=== PATIENT | male | born 1985 | race Caucasian/White ===

== ENCOUNTER 2016-08-01 19:42 | Emergency (ER) | payer OTHER ==
[2016-08-01 20:24] VITALS: BP 140/88
[2016-08-01] MEDS ORDERED: Ketorolac INJ* 60 MG/2 ML VIAL IM ONE (22:06)
--- NOTE | 2016-08-01 22:10 | UC ---
Skin Complaint HPI - HPI Summary HPI Summary: 30 male presents with complaints of a lump on his left flank that notice today while in the shower. Patient states he has never had anything like this before and denies pain on palpation. Denies redness, discharge, and fever/chills. Admits to having similar ones in the past that resolved on their own. 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 Denies any known trauma or injury. Denies numbness/tingling, weakness, saddle anesthesia and urinary bladder or bowel incontinence. No known PMHx. - History of Current Complaint Chief Complaint: UCSkin Stated Complaint: LUMP ON BACK Hx Obtained From: Patient Onset/Duration: Sudden Onset Skin Exposure Onset/Duration: Hours Ago Timing: Constant Onset Severity: Mild Current Severity: Mild Pain Intensity: 5 - due to back pain Pain Scale Used: 0-10 Numeric Location: Other - left flank Character: Swelling, Raised Aggravating: Nothing Alleviating: Nothing Associated Signs & Symptoms: Positive: Negative - Allergy/Home Medications Allergies/Adverse Reactions: Allergies Allergy/AdvReac Type Severity Reaction Status Date / Time No Known Allergies Allergy Verified 08/01/16 20:16 Home Medications: Home Medications Ibuprofen [Advil] 200 mg PO Q6H PRN 08/01/16 [History Confirmed 08/01/16] Review of Systems Constitutional: Negative Skin: Other - lump on left flank Respiratory: Negative Cardiovascular: Negative Gastrointestinal: Negative Musculoskeletal: Arthralgia, Myalgia - back diffuse All Other Systems Reviewed And Are Negative: Yes PMH/Surg Hx/FS Hx/Imm Hx - Additional Past Medical History Additional PMH: denies htn, diabetes and asthma - Surgical History Surgical History: Yes Surgery Procedure, Year, and Place: knee surgery - Family History Known Family History: Positive: None - Social History Alcohol Use: Daily Alcohol Amount: 2 beers a day Substance Use Type: None Smoking Status (MU): Former Smoker - Immunization History Vaccination Up to Date: Yes Physical Exam Triage Information Reviewed: Yes Appearance: Well-Appearing, Pain Distress - mild when moving Vital Signs: Initial Vital Signs Temp 97.6 F 08/01/16 20:17 Pulse 92 08/01/16 20:17 Resp 16 08/01/16 20:17 BP 140/88 08/01/16 20:17 Pulse Ox 100 08/01/16 20:17 BP somewhat elevated however is in pain. recommended follow up with pcp within 2 weeks to re check Vital Signs Reviewed: Yes Eyes: Positive: Conjunctiva Clear ENT: Positive: Normal ENT inspection, Hearing grossly normal Neck: Positive: Supple, Nontender, No Lymphadenopathy Respiratory: Positive: Chest non-tender, Lungs clear, Normal breath sounds, No respiratory distress, No accessory muscle use. Negative: Rhonchi, Stridor, Wheezing Cardiovascular: Positive: RRR, No Murmur, Pulses Normal - 2+ pedal and radial, Brisk Capillary Refill - < 2 seconds Abdomen Description: Positive: Nontender, Soft. Negative: Bruit, CVA Tenderness (R), CVA Tenderness (L), Distended, Guarding, Peritoneal Signs Bowel Sounds: Positive: Present Musculoskeletal: Positive: Strength Intact, ROM Intact - causes some discomfort when twisting and flexing at lower back and left sided rotation, No Edema, Other : - no crepitus step off or bony tenderness, no obvious deformity Neurological: Positive: Alert - sensation intact, normal neuro, reflexes intact , gait kathy, able to bear weight, sensory/motor intact, Skin: Positive: Other - somewhat fluctuant to firm lump felt at left flank, mid- back, minimal tenderness on palpation. no erythema, discharge or open wounds, no sign of infection. no rash. no ecchymosis. lump is skin colored. appears to be lipoma Course/Dx - Course Course Of Treatment: discussed that back pain is probably due to hard labor and strained. given toradol for pain and inflammation. takes ibuprofen and naproxen daily with minimal relief. no kidney issues. educated on lipomas and aware of worsening signs and symptoms to watch out for. does not appear to be any urgent or emergent etiology at this time. told to follow up with PCP for further imaging and evaluation. - Differential Diagnoses - Skin Complaint Differential Diagnoses: Allergic Reaction, Cellulitis, Urticaria, Other - lipoma - Diagnoses Provider Diagnoses: lipoma, skin lump, back pain/strain Discharge - Discharge Plan Condition: Stable Disposition: HOME Patient Education Materials: Lipoma (ED), Soft Tissue Mass (ED) Referrals: No Primary Care Phys,NOPCP [Primary Care Provider] - [facility] [place] [facility] REFERRAL [Outside] Additional Instructions: Take ibprofen/naproxen for pain and inflammation for back pain. Follow up with pcp for further imaging and evaluation of possible lipoma. If symptoms worsen or new symptoms develop please return or seek medical attention promptly.
== END 2016-08-01 22:18 | disposition home or self-care (01) ==
LOC: UCEAST 19:42
DX: D17.1 Benign lipomatous neoplasm of skin and subcutaneous tissue of trunk (principal); M54.9 Dorsalgia, unspecified; S39.012A Strain of muscle, fascia and tendon of lower back, initial encounter; X50.9XXA Other and unspecified overexertion or strenuous movements or postures, initial encounter; Z87.891 Personal history of nicotine dependence
CPT/HCPCS: 96372; 99211; G0463; J1885

== ENCOUNTER 2016-08-30 07:22 | Emergency (ER) | payer OTHER ==
[2016-08-30 07:43] VITALS: BP 129/85
--- NOTE | 2016-08-30 12:12 | UC ---
Mary Peacock Auryana, scribed for MarcelleElaine Hayde DO on 08/30/16 at 0823 . General HPI - HPI Summary HPI Summary: 30 year old male presents with worsening diffuse myalgia starting 4 days ago. Patient reports that the pain started as right shoulder pain that radiates down the arm to the elbow and the fingers. The pain has now spread to the lower extremities, the back, and up to the neck region. Patient reports that the pain fluctuates from a 6/10 - 8/10 and is characterized as dull to stabbing pain. He reports normal appetite. He denies feeling sick or any fever, chills, nausea, left foot pain, headache, parasthesias, or any rashes. He denies any dry eyes or dry mouth. He denies strenuous activity. He reports decreased sleep due to pain- states inability to get comfortable. Patient states that he has been gaining weight recently and that his has noted back acne - unusual for patient. Pain is worse with touch and upon moving after sitting for prolonged periods of time. 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 He notes that 2 weeks ago he was cleaning out his property - states found multiple tick nests but denies any tick bites- states that he checks frequently. PMHx is significant for general anxiety, knee surgery and back pain secondary to deteriorated disc and hip pain. FHx is significant for Sjogrens syndrome and substance abuse- Patient is adopted. SHx is significant for tobacco use (chew Saturday)and alcohol - daily, 2 drinks after work. 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 - History of Current Complaint Chief Complaint: UCGeneralIllness Stated Complaint: BODY WEAK AND HURTS Time Seen by Provider: 08/30/16 07:41 Hx Obtained From: Patient Onset/Duration: Gradual Onset, Lasting Days - 4, Still Present, Worse Since - progressively Timing: Constant Onset Severity: Moderate Current Severity: Moderate Pain Intensity: 7 - 6/10 to 8/10 Pain Location at: diffuse myalgia Character: dull to stabbing character Aggravating: movement after prolonged rest or touch Alleviating: ibuprofen - mild improvement Associated Signs & Symptoms: Positive: Back Pain, Other - diffuse myalgia. Negative: Abdominal Pain, Cough, Chest Pain, Dizziness, Diarrhea, Dysuria, Decreased Oral Intake, Fever, Headache, Nausea, Syncope, SOB, Vomiting, Wheezing - Allergy/Home Medications Allergies/Adverse Reactions: Allergies Allergy/AdvReac Type Severity Reaction Status Date / Time No Known Allergies Allergy Verified 08/01/16 20:16 Home Medications: Home Medications Aspirin [Paul Aspirin 325 MG] 08/30/16 [History] PMH/Surg Hx/FS Hx/Imm Hx Previously Healthy: Yes - Surgical History Surgical History: Yes Surgery Procedure, Year, and Place: knee surgery-right knee - Family History Known Family History: Positive: Other - substance abuse and sjogrens Negative: Cardiac Disease, Hypertension, Diabetes - Social History Occupation: Employed Full-time Lives: With Family Alcohol Use: Daily Alcohol Amount: several beers daily/whiskey Substance Use Type: Marijuana Smoking Status (MU): Light Every Day Tobacco Smoker Type: Smokeless Tobacco Amount Used/How Often: last used 4 days ago - previously 8 months before that Cessation Counseling: Patient Advised to Stop - Immunization History Vaccination Up to Date: Yes Review of Systems Constitutional: Fatigue - due to inability to get comfortable when sleeping, Other - increased weight gain recently Skin: Other - increased back acne Eyes: Negative ENT: Negative Respiratory: Negative Cardiovascular: Negative Gastrointestinal: Negative Genitourinary: Negative Motor: Negative Neurovascular: Negative Musculoskeletal: Myalgia - diffuse Neurological: Negative Psychological: Negative All Other Systems Reviewed And Are Negative: Yes Physical Exam Triage Information Reviewed: Yes Appearance: Well-Appearing, Well-Nourished, Pain Distress - mild Vital Signs: Initial Vital Signs Temp 98.2 F 08/30/16 07:35 Pulse 85 08/30/16 07:35 Resp 16 08/30/16 07:35 BP 129/85 08/30/16 07:35 Pulse Ox 99 08/30/16 07:35 Vital Signs Reviewed: Yes Eyes: Positive: Conjunctiva Clear. Negative: Discharge ENT: Positive: Hearing grossly normal. Negative: Muffled/hoarse voice Neck exam: Normal Neck: Positive: Supple Respiratory: Positive: Lungs clear, Normal breath sounds, No respiratory distress, No accessory muscle use Cardiovascular: Positive: RRR, No Murmur Abdomen Description: Positive: Nontender, Soft. Negative: Distended, Guarding Bowel Sounds: Positive: Present Musculoskeletal Exam: Normal Musculoskeletal: Positive: Strength Intact, ROM Intact, No Edema, Other: - SPURLINGS NEG BL. DIFFUSE TENDERNESS - ARMS, SHINS, RT FOOT, NECK, SPA MANAGER TO LIGHT PALPATION. Neurological: Positive: Alert, Muscle Tone Normal, Other: - Strength, sensation , and reflexes intact bilaterally. Psychological Exam: Normal Psychological: Positive: Age Appropriate Behavior Skin Exam: Normal, Other - No redness, swelling, or bruising are noted. Skin: Positive: Other - warm, dry, normal color Course/Dx - Course Course Of Treatment: the patient has been encouraged to quit smoking. high blood pressure noted. - Differential Dx - Multi-Symptom Provider Diagnoses: lyme disease Discharge - Discharge Plan Condition: Stable Disposition: HOME Prescriptions: Acetaminop/Codeine 30 MG TAB* [Tylenol/Codeine 30 MG TAB*] 1 - 2 tab PO BEDTIME PRN #10 tab MDD 2 PRN Reason: Pain DOXYcycline CAP(*) [DOXYcycline 100MG CAP(*)] 100 mg PO BID #42 cap Patient Education Materials: Lyme Disease (ED) Referrals: [facility] [place] [facility] [Outside] (Follow up within 1 week.) Additional Instructions: WE ARE DOING SOME LAB WORK. YOU WILL BE CALLED WITH ABNORMAL RESULTS. The documentation as recorded by the Mary hoyos Auryana accurately reflects the service I personally performed and the decisions made by me, Elaine Ibanez DO.
[2016-08-30 12:26] LABS: Hematocrit 44 % (42-52); Hemoglobin 15.1 g/dl (14.0-18.0); Mean Corpuscular HGB Conc 35 g/dl (31-36); Mean Corpuscular Hemoglobin 30 pg (27-31); Mean Corpuscular Volume 86 fL (80-94); Mean Platelet Volume 9 um3 (7.4-10.4); Red Blood Count 5.06 10^6/ul (4.0-5.4); Red Cell Distribution Width 13 % (10.5-15); White Blood Count 8.2 10^3/ul (3.5-10.8)
[2016-08-30 13:33] LABS: Erythrocyte Sed Rate 9 mm/Hr (0-14)
[2016-08-31 15:21] LABS: Rheumatoid Factor <15 IU/mL (<15)
== END 2016-08-30 08:47 | disposition home or self-care (01) ==
LOC: UCEAST 07:22
DX: A69.20 Lyme disease, unspecified (principal); Z79.82 Long term (current) use of aspirin; F17.200 Nicotine dependence, unspecified, uncomplicated
CPT/HCPCS: 36415; 85025; 85652; 86038; 86141; 86431; 86618; 99212; G0463

== ENCOUNTER 2017-02-22 12:11 | Emergency (ER) | payer BC, OTHER ==
[2017-02-22 12:25] VITALS: BP 134/80
--- NOTE | 2017-02-22 13:07 | RAD ---
HISTORY: Occipital pain status post injury COMPARISONS: None TECHNIQUE: Multiple contiguous axial CT scans were obtained of the head without intravenous contrast. FINDINGS: HEMORRHAGE/INFARCT: There is no hemorrhage or acute infarct. MASSES/SHIFT: There is no mass or shift. EXTRA-AXIAL SPACES: There are no extra-axial fluid collections. SULCI AND VENTRICLES: The sulci and ventricles are normal in size and position for the patient's stated age. CEREBRUM: There are no focal parenchymal abnormalities. BRAINSTEM: There are no focal parenchymal abnormalities. CEREBELLUM: There are no focal parenchymal abnormalities. VESSELS: The vessels are grossly normal. PARANASAL SINUSES: The paranasal sinuses are clear. ORBITS: The orbits are unremarkable. BONES AND SOFT TISSUE: No bone or soft tissue abnormalities are noted. OTHER: None IMPRESSION: NO ACUTE INTRACRANIAL PATHOLOGY.
--- NOTE | 2017-02-22 13:21 | UC ---
Neck Pain HPI - HPI Summary HPI Summary: Pt presents with head/neck injury sustained at work earlier today. He owns a construction business and tells me about 2 hours prior to his arrival to , he was walking through the house under construction with his back and neck slightly flexed due to low ceilings. He hit the top of his head on a low ceiling and felt a loud crack in his posterior neck. Had immediate pain, but gradually improved. He says that he does have a history of bulging discs in his cervical spine. Denies headache, dizziness, numbness, tingling, SOB, difficulty swallowing, cough, chest pain, weakness, vision changes, or slurred speech. No LOC. - History of Current Complaint Chief Complaint: UCTrauma Stated Complaint: HEAD INJURY Time Seen by Provider: 02/22/17 12:30 Hx Obtained From: Patient Mechanism Of Injury: Blunt Trauma Onset/Duration: Sudden Onset Severity: Moderate Pain Intensity: 7 Pain Scale Used: 0-10 Numeric - Allergies/Home Medications Allergies/Adverse Reactions: Allergies Allergy/AdvReac Type Severity Reaction Status Date / Time No Known Allergies Allergy Verified 02/22/17 12:25 Home Medications: Home Medications Multiple Vitamins W/ Minerals [Multivitamin] 1 tab PO DAILY 02/22/17 [History Confirmed 02/22/17] Zinc W/ Vitamin C [Zinc & C Lozenges 20-120 mg] 1 tab PO DAILY 02/22/17 [ History Confirmed 02/22/17] PMH/Surg Hx/FS Hx/Imm Hx Previously Healthy: Yes - Surgical History Surgical History: Yes Surgery Procedure, Year, and Place: knee surgery-right knee - Family History Known Family History: Positive: Other - substance abuse and sjogrens Negative: Cardiac Disease, Hypertension, Diabetes - Social History Occupation: Employed Full-time Lives: With Family Alcohol Use: Weekly Alcohol Amount: several beers daily/whiskey Substance Use Type: None Smoking Status (MU): Unknown if Ever Smoked Type: eCigarettes Amount Used/How Often: last used 4 days ago - previously 8 months before that - Immunization History Most Recent Influenza Vaccination: NOT UTD Vaccination Up to Date: Yes Review Of Systems Constitutional: Positive: Negative Skin: Positive: Negative Eyes: Positive: Negative ENT: Positive: Negative Respiratory: Positive: Negative Cardiovascular: Positive: Negative Gastrointestinal: Positive: Negative Genitourinary: Positive: Negative Musculoskeletal: Positive: Other: - Neck pain Neurological: Positive: Negative Psychological: Positive: Negative All Other Systems Reviewed And Are Negative: Yes Physical Exam Triage Information Reviewed: Yes Appearance: Well-Appearing, No Pain Distress, Well-Nourished, Other: - In C- collar Vital Signs: Initial Vital Signs Temp 98.5 F 02/22/17 12:19 Pulse 87 02/22/17 12:19 Resp 18 02/22/17 12:19 BP 134/80 02/22/17 12:19 Pulse Ox 98 02/22/17 12:19 Vital Signs Reviewed: Yes Eyes: Positive: Conjunctiva Clear, Other: - EOMI. PERRLA.. Negative: Conjunctiva Inflamed, Discharge ENT: Positive: Hearing grossly normal, Pharynx normal, TMs normal, Uvula midline. Negative: Pharyngeal erythema, Nasal congestion, Nasal drainage, TM bulging, TM dull, TM red, Tonsillar swelling, Tonsillar exudate, Muffled voice, Hoarse voice, Sinus tenderness Neck: Positive: Supple, No Lymphadenopathy, Other: - TTP paraspinal muscles of lower posterior neck and surrounding cervical spine. No specific vertebral tenderness....After CT cleared: FROM with mild pain along cervical spine. Respiratory: Positive: Chest non-tender, Lungs clear, Normal breath sounds, No respiratory distress, No accessory muscle use Cardiovascular: Positive: RRR, No Murmur, Pulses Normal - B/L UEs Musculoskeletal: Positive: Strength Intact - B/L UEs and LEs, ROM Intact - B/L UEs and LEs, No Edema Neurological: Positive: Alert, Muscle Tone Normal, Other: - A&Ox3. 3 word recall , remote, recent memory, ability to follow 2-step directions, and attention intact. CN II XII grossly intact. [id number] are intact. Gait with normal base. Romberg: maintains balance, no pronator drift. Sensory: intact and symmetric b/l UEs and LEs. Reflexes: biceps, triceps, brachioradialis, knee, and ankle +2. Normal speech. No facial drooping. Psychological: Positive: Age Appropriate Behavior Skin: Positive: Other - No ecchymosis, raccoon eyes, or sheldon's sign.. Negative: rashes Neck Pain Course/Dx - Course Course Of Treatment: Head CT: NO ACUTE INTRACRANIAL PATHOLOGY. Cervical CT: MINIMAL DEGENERATIVE DISC DISEASE AND OSTEOARTHRITIS. NO ACUTE OSSEOUS INJURY TO THE SPINE. Suspect cervical muscle strain/spasm - neuro exam WNL and CTs negative. Advised to rest, ice/heat, and take ibuprofen as needed for pain. Watch for any red flag symptoms and if so report to ED or call 911. - Differential Dx/Diagnosis Differential Dx/HQI/PQRI: Cervical Fracture, Dislocation, Intracranial Bleed, Sprain, Strain, Trauma Provider Diagnoses: Cervical neck strain Discharge - Discharge Plan Condition: Stable Disposition: HOME Patient Education Materials: Cervical Strain (ED) Referrals: No Primary Care Phys,NOPCP [Primary Care Provider] - Additional Instructions: If you develop a fever, SOB, chest pain, headache, dizziness, vision changes, numbness/tingling, new or worsening symptoms - please call your PCP or go to the ED. Your blood pressure was mildly at todays visit. Please see your primary provider within 4 weeks for recheck and re-evaluation 1) Rest and Ice your neck for the next 24 hours. May return to work as tolerated. 2) Ibuprofen 400mg every 4-6 hours as needed for pain.
--- NOTE | 2017-02-22 13:27 | RAD ---
HISTORY: Occipital pain status post injury, neck pain COMPARISONS: None TECHNIQUE: Multiple contiguous axial CT scans were obtained of the cervical spine without intravenous contrast, with coronal and sagittal multiplanar reformations. FINDINGS: BRAIN: The visualized brain is unremarkable CENTRAL CANAL: Evaluation of the central canal is limited on CT technique, however there is no obvious canalicular mass or epidural hemorrhage. ALIGNMENT: There is straightening of the normal cervical lordosis. VERTEBRAL BODIES: The odontoid process is intact. The atlantoaxial intervals are symmetric. The vertebral bodies are normal in attenuation, without fracture. There is minimal anterolateral marginal osteophyte formation C6-C7. JOINTS: There is minimal uncovertebral hypertrophy. MUSCULATURE: Unremarkable INTERVERTEBRAL DISCS: There is mild diffuse loss of intervertebral disc height. AXIAL IMAGES: On axial images, there is no osseous neural foraminal narrowing or central canal stenosis. SOFT TISSUES: The visualized soft tissues of the neck are unremarkable. The prevertebral fat stripe is preserved. OTHER: None. IMPRESSION: MINIMAL DEGENERATIVE DISC DISEASE AND OSTEOARTHRITIS. NO ACUTE OSSEOUS INJURY TO THE SPINE
== END 2017-02-22 13:50 | disposition home or self-care (01) ==
LOC: UCEAST 12:11
DX: S16.1XXA Strain of muscle, fascia and tendon at neck level, initial encounter (principal); M50.30 Other cervical disc degeneration, unspecified cervical region; M47.892 Other spondylosis, cervical region; W22.8XXA Striking against or struck by other objects, initial encounter; Y92.009 Unspecified place in unspecified non-institutional (private) residence as the place of occurrence of the external cause
CPT/HCPCS: 70450; 72125; 99212; G0463

== ENCOUNTER 2017-09-24 08:40 | Emergency (ER) | payer BC ==
[2017-09-24] MEDS ORDERED: Ibuprofen TAB* 400 MG PO ONE (10:09)
--- NOTE | 2017-09-24 10:20 | UC ---
Back Pain HPI - HPI Summary HPI Summary: PATIENT SUFFERS FROM INTERMITTENT BACK PAIN AND DOES A LOT OF HEAVY LIFTING AT WORK. THIS MORNING WOKE UP AND GOT OUT OF BED AND HAD IMMEDIATE EXCRUCIATING PAIN THAT TOOK HIM TO THE FLOOR. DENIES NUMBNESS, TINGLING. NO SADDLE ANESTHESIA. REPORTS HISTORY OF DISC DISEASE IN HIS NECK. STATES PAIN GOES ALL THE WAY FROM HIS TAILBONE UP TO HIS NECK AND INTO HIS RIGHT SHOULDER. LIFTED A 450 POUND SMOKER 3 DAYS AGO. - History of Current Complaint Chief Complaint: UCBackPain Stated Complaint: BACK PAIN Time Seen by Provider: 09/24/17 09:46 Hx Obtained From: Patient Onset/Duration: Sudden Onset, Lasting Hours, Still Present Timing: Constant Severity Initially: Moderate Severity Currently: Moderate Pain Intensity: 10 - STANDING IN ROOM IN NO ACUTE DISTRESS Pain Scale Used: 0-10 Numeric Back Pain: Is Diffuse Character: Sharp Aggravating Factor(s): Movement Alleviating Factor(s): Nothing Associated Signs And Symptoms: Negative: Swelling, Bruising, Fever, Weakness, Numbness, Tingling, Bladder Incontinence, Bowel Incontinence, Pain with Weight Bearing - Allergies/Home Medications Allergies/Adverse Reactions: Allergies Allergy/AdvReac Type Severity Reaction Status Date / Time No Known Allergies Allergy Verified 02/22/17 12:25 PMH/Surg Hx/FS Hx/Imm Hx Previously Healthy: Yes - Surgical History Surgical History: Yes Surgery Procedure, Year, and Place: knee surgery-right knee - Family History Known Family History: Positive: Other - substance abuse and sjogrens Negative: Cardiac Disease, Hypertension, Diabetes - Social History Alcohol Use: Weekly Alcohol Amount: several beers daily/whiskey Substance Use Type: None Smoking Status (MU): Former Smoker Type: eCigarettes Amount Used/How Often: last used 4 days ago - previously 8 months before that Length of Time of Smoking/Using Tobacco: 4 YEARS Household Exposure Type: Cigarettes - Immunization History Most Recent Influenza Vaccination: NOT UTD Vaccination Up to Date: Yes Review of Systems Constitutional: Negative Skin: Negative Respiratory: Negative Cardiovascular: Negative Gastrointestinal: Negative Musculoskeletal: Arthralgia, Decreased ROM, Myalgia All Other Systems Reviewed And Are Negative: Yes Physical Exam Triage Information Reviewed: Yes Appearance: Well-Appearing, No Pain Distress, Well-Nourished Vital Signs: Initial Vital Signs Temp 99.2 F 09/24/17 08:46 Pulse 73 07/24/18 08:46 Resp 20 09/24/17 08:46 BP 135/77 09/24/17 08:46 Pulse Ox 99 09/24/17 08:46 Vital Signs Reviewed: Yes Eyes: Positive: Conjunctiva Clear ENT: Positive: Hearing grossly normal Neck: Positive: Supple Respiratory: Positive: No respiratory distress, No accessory muscle use Cardiovascular: Positive: Pulses Normal Abdomen Description: Positive: Soft Musculoskeletal: Positive: No Edema, ROM Limited @ - BACK Neurological: Positive: Alert Psychological: Positive: Age Appropriate Behavior Skin: Negative: rashes Diagnostics - Radiology C/T/L/S SPINE XRAYS Xray Interpretation: Positive (See Comments) - 1. Mild C6-C7 degenerative spondylosis new compared with the prior exam. 2. Mild C2-C3 and C3-C4 degenerative spondylosis versus congenitally narrowed disc space is without change. Radiology Interpretation Completed By: Radiologist Back Pain Course/Dx - Differential Dx/Diagnosis Provider Diagnoses: ACUTE ON CHRONIC BACK PAIN Discharge - Sign-Out/Discharge Documenting (check all that apply): Patient Departure - Discharge Plan Condition: Stable Disposition: HOME Prescriptions: Cyclobenzaprine TAB* [Flexeril TAB*] 10 mg PO BID PRN #30 tab PRN Reason: Pain Meloxicam [Mobic] 7.5 mg PO BID PRN #30 tab PRN Reason: Pain Oxycodone HCl/Acetaminophen [Percocet 5-325 mg Tablet] 1 tab PO Q6H PRN #10 tablet MDD 4 PRN Reason: Pain Patient Education Materials: Chronic Back Pain (ED) Forms: *Work Release Referrals: Presley Moise MD [Medical Doctor] - If Needed Additional Instructions: XRAYS OF CERVICAL, THORACIC AND LUMBARSACRAL SPINE TODAY SHOW: 1. Mild C6-C7 degenerative spondylosis new compared with the prior exam. 2. Mild C2-C3 and C3-C4 degenerative spondylosis versus congenitally narrowed disc space is without change. PHYSICAL THERAPY REFERRAL PROVIDED TODAY. [facility] [address] [place] [id number] BE SURE TO GO THROUGH SLOW RANGE OF MOTION AND STRETCHING EXERCISES DAILY YOU ARE ABLE TO PREVENT STIFFENING UP AND MAKING THE DISCOMFORT WORSE. GO TO THE ER WITHOUT FAIL IF YOU DEVELOP NUMBNESS/TINGLING IN YOUR LEGS, NUMBNESS IN THE GENITAL REGION, LOSS OF BOWEL/BLADDER CONTROL, INTOLERABLE PAIN OR ANY OTHER CONCERNING SYMPTOMS. CALL THE NUMBER BELOW FOR ASSISTANCE IN ESTABLISHING WITH A PCP An additional resource available to assist in finding the appropriate physician for your health care needs is the [facility] ([facility]). You may contact them by calling [phone]. - Billing Disposition and Condition Condition: STABLE Disposition: Home
[2017-09-24 10:59] VITALS: BP 115/81
--- NOTE | 2017-09-24 10:59 | RAD ---
HISTORY: PAIN, back pain COMPARISONS: Chest x-ray dated June 01, 2014 VIEWS: 2, Frontal and lateral views of the thoracic spine. FINDINGS: ALIGNMENT: The alignment is normal. VERTEBRAL BODIES: The vertebral body heights are normal. The interpedicular distances are normal. JOINTS: Unremarkable. INTERVERTEBRAL DISCS: The intervertebral disc heights are normal. SOFT TISSUE: Unremarkable OTHER: The visualized lungs are clear. IMPRESSION: UNREMARKABLE RADIOGRAPHS OF THE THORACIC SPINE
--- NOTE | 2017-09-24 10:59 | RAD ---
Indication: Axial spine pain from the neck to the tailbone with worsening since Saturday. Comparison: June 01, 2014 Technique: AP, open-mouth odontoid, and lateral views cervical spine. Report: Normal cervical spine alignment. Negative for fracture. Mild C2-C3 and C3-C4 disc space narrowing similar to the prior exam which may reflect degenerative spondylosis or congenital variation. No significant associated vertebral and osteophytosis to favor degenerative spondylosis. Mild disc space narrowing and vertebral endplate osteophytosis and disc space narrowing at the C6-C7 level new compared with the 2015 exam. Unremarkable prevertebral soft tissue contours. IMPRESSION: #. Mild C6-C7 degenerative spondylosis new compared with the prior exam. #. Mild C2-C3 and C3-C4 degenerative spondylosis versus congenitally narrowed disc space is without change.
--- NOTE | 2017-09-24 11:40 | RAD ---
HISTORY: PAIN, back pain COMPARISONS: None VIEWS: 5 , Frontal, lateral, coned-down lateral sacral, and bilateral oblique views of the lumbar spine. FINDINGS: There is a transitional last lumbar type vertebral body which will be labeled L5 for the purposes of counting. ALIGNMENT: The alignment is normal. VERTEBRAL BODIES: The vertebral body heights are normal. The interpedicular distances are normal. There is partial sacralization of L5. Incidentally noted is a small dysraphic defect of L5. JOINTS: The facet joints are normal. INTERVERTEBRAL DISCS: The intervertebral disc heights are normal. SOFT TISSUE: Unremarkable. OTHER: The pelvis is unremarkable. The lung bases are clear. IMPRESSION: UNREMARKABLE RADIOGRAPHS OF THE LUMBAR SPINE.
== END 2017-09-24 12:13 | disposition home or self-care (01) ==
LOC: UCEAST 08:40
DX: M54.9 Dorsalgia, unspecified (principal); G89.29 Other chronic pain; M54.2 Cervicalgia; M25.511 Pain in right shoulder; Z87.891 Personal history of nicotine dependence
CPT/HCPCS: 72040; 72070; 72110; 99212; A9270-GY; G0463

== ENCOUNTER 2018-03-26 11:12 | Emergency (ER) | payer BC ==
[2018-03-26 11:28] VITALS: BP 124/79
--- NOTE | 2018-03-26 12:00 | UC ---
Back Pain HPI - HPI Summary HPI Summary: Patient has a history of chronic upper, middle and low back pain. 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 X- rays of his back showed degeneration of the cervical spine that had progressed since his previous images in 2014. He does not tolerate hydrocodone very well and so I gave him a short course of Percocet which he does well with in conjunction with Flexeril. He was referred to the spine Center in [place] as well as physical therapy. Patient since then has established with a PCP who advised that he follow with neurosurgery here in [place] as opposed to the spine center. He has done this and has had MRIs of his cervical spine which showed worsening of his disc disease. According to the patient he was advised to rest it and let it heal. Was told that surgery might be a possibility in the future but not right now and that he was not a candidate for injections. He did not do PT. Patient comes in today after shoveling ice and snow yesterday for 2.5 hours. He woke up this morning barely able to move. Denies any numbness or tingling in his legs. No saddle anesthesia. No loss of bowel or bladder control. - History of Current Complaint Chief Complaint: UCBackPain Stated Complaint: BACK INJURY Time Seen by Provider: 03/26/18 11:23 Hx Obtained From: Patient Onset/Duration: Sudden Onset, Lasting Hours, Still Present Timing: Constant Severity Initially: Moderate Severity Currently: Moderate Pain Intensity: 8 Pain Scale Used: 0-10 Numeric Back Pain: Is Discrete @ - low back Character: Sharp, Spasmodic, Stiffness Aggravating Factor(s): Movement Alleviating Factor(s): Nothing Associated Signs And Symptoms: Negative: Swelling, Redness, Bruising, Weakness, Numbness, Tingling, Bladder Incontinence, Bowel Incontinence - Allergies/Home Medications Allergies/Adverse Reactions: Allergies Allergy/AdvReac Type Severity Reaction Status Date / Time No Known Allergies Allergy Verified 03/26/18 11:28 PMH/Surg Hx/FS Hx/Imm Hx - Additional Past Medical History Additional PMH: CHRONIC BACK PAIN - Surgical History Surgical History: Yes Surgery Procedure, Year, and Place: knee surgery-right knee - Family History Known Family History: Positive: Other - substance abuse and sjogrens Negative: Cardiac Disease, Hypertension, Diabetes - Social History Alcohol Use: Occasionally Alcohol Amount: several beers daily/whiskey Substance Use Type: None Smoking Status (MU): Former Smoker Type: eCigarettes Amount Used/How Often: last used 4 days ago - previously 8 months before that Length of Time of Smoking/Using Tobacco: 4 YEARS Household Exposure Type: Cigarettes - Immunization History Most Recent Influenza Vaccination: NOT UTD Vaccination Up to Date: Yes Review of Systems All Other Systems Reviewed And Are Negative: Yes Constitutional: Positive: Negative Skin: Positive: Negative Respiratory: Positive: Negative Cardiovascular: Positive: Negative Gastrointestinal: Positive: Negative Musculoskeletal: Positive: Decreased ROM, Myalgia Physical Exam Triage Information Reviewed: Yes Appearance: Well-Appearing, Well-Nourished, Pain Distress - MODERATE Vital Signs: Initial Vital Signs Temp 98 F 03/26/18 11:25 Pulse 79 03/26/18 11:25 Resp 17 03/26/18 11:25 BP 124/79 03/26/18 11:25 Pulse Ox 98 03/26/18 11:25 Vital Signs Reviewed: Yes Eyes: Positive: Conjunctiva Clear ENT: Positive: Hearing grossly normal Neck: Positive: Supple Respiratory: Positive: No respiratory distress, No accessory muscle use Cardiovascular: Positive: Pulses Normal Abdomen Description: Positive: Soft Musculoskeletal: Positive: No Edema, ROM Limited @ - BACK, Other: - TTP DIFFUSELY OVER LOW BACK Neurological: Positive: Alert Psychological: Positive: Age Appropriate Behavior Skin: Negative: Rashes Back Pain Course/Dx - Course Course Of Treatment: ADVISED PT THAT THE IS NOT AN APPROPRIATE VENUE FOR MANAGEMENT OF CHRONIC BACK PAIN. PT STATES HE CAN NOT SEE HIS PCP IN A TIMELY MANNER. WILL GIVE ANOTHER SHORT COURSE OF PERCOCET AND ANOTHER PT REFERRAL. ENCOURAGED PT TO CALL SPINE CENTER. - Differential Dx/Diagnosis Provider Diagnosis: Acute exacerbation of chronic low back pain Discharge - Sign-Out/Discharge Documenting (check all that apply): Patient Departure All imaging exams completed and their final reports reviewed: No Studies - Discharge Plan Condition: Stable Disposition: HOME Prescriptions: Cyclobenzaprine TAB* [Flexeril TAB*] 10 mg PO BID PRN #30 tab PRN Reason: Pain oxyCODONE/Acetamin 5/325 MG* [Percocet 5/325 TAB*] 1 tab PO Q6H PRN #10 tab MDD 4 PRN Reason: Pain Patient Education Materials: Low Back Strain (ED) Referrals: Sanjay Paulino MD [Primary Care Provider] - 1 Week Additional Instructions: PHYSICAL THERAPY REFERRAL PROVIDED AGAIN TODAY. CONSIDER A SECOND OPINION AT THE SPINE [facility] [address] [place], [place] [id number] BE SURE TO GO THROUGH SLOW RANGE OF MOTION AND STRETCHING EXERCISES DAILY YOU ARE ABLE TO PREVENT STIFFENING UP AND MAKING THE DISCOMFORT WORSE. GO TO THE ER WITHOUT FAIL IF YOU DEVELOP NUMBNESS/TINGLING IN YOUR LEGS, NUMBNESS IN THE GENITAL REGION, LOSS OF BOWEL/BLADDER CONTROL, INTOLERABLE PAIN OR ANY OTHER CONCERNING SYMPTOMS. - Billing Disposition and Condition Condition: STABLE Disposition: Home
== END 2018-03-26 12:11 | disposition home or self-care (01) ==
LOC: UCEAST 11:12
DX: M54.5 Low back pain (principal); Z87.891 Personal history of nicotine dependence
CPT/HCPCS: 99212; G0463

== ENCOUNTER 2018-09-17 09:46 | Emergency (ER) | payer BC ==
[2018-09-17 10:11] VITALS: BP 137/73
--- NOTE | 2018-09-17 11:10 | UC ---
Neck Pain HPI - HPI Summary HPI Summary: 32-year-old male coming in with a chief complaint of neck pain. Pain started yesterday left lower anterior neck. Pain is worse with movement of the neck and palpation of the neck. Pains about a 5 out of 10 worse with movement. Yesterday just before the pain started 3 did have some chest pain and racing heart and felt lightheaded but those symptoms have passed any does not have the symptoms now. In the last couple of months patient's had his teeth removed and replaced with dentures. Since that time he reports a weight loss of 25% of his initial weight. The pain is worst in the left lower anterior neck and radiates up into his ear and up into his left jaw. No fevers or chills no shortness of breath at this time. - History of Current Complaint Chief Complaint: UCGeneralIllness Stated Complaint: NECK/JAW PAIN Time Seen by Provider: 09/17/18 11:00 Pain Intensity: 7 - Allergies/Home Medications Allergies/Adverse Reactions: Allergies Allergy/AdvReac Type Severity Reaction Status Date / Time No Known Allergies Allergy Verified 09/17/18 10:03 Home Medications: Home Medications Aspirin/Acetaminophen/Caffeine [Excedrin Extra Strength Caplet] 2 each PO ONCE PRN 09/17/18 [History Confirmed 09/17/18] PMH/Surg Hx/FS Hx/Imm Hx Previously Healthy: Yes - ALL TEETH REMOVED 2 MONTHS AGO - Surgical History Surgical History: Yes Surgery Procedure, Year, and Place: knee surgery-right knee - Family History Known Family History: Positive: Other - substance abuse and sjogrens Negative: Cardiac Disease, Hypertension, Diabetes - Social History Alcohol Use: Occasionally Alcohol Amount: several beers daily/whiskey Substance Use Type: Marijuana Substance Use Comment - Amount & Last Used: daily use Smoking Status (MU): Smoker, Current Status Unknown Type: eCigarettes Amount Used/How Often: occasional Length of Time of Smoking/Using Tobacco: 4 YEARS When Did the Patient Quit Smoking/Using Tobacco: 1 year ago, but does occasionally use e cig Household Exposure Type: Cigarettes - Immunization History Most Recent Influenza Vaccination: NOT UTD Vaccination Up to Date: Yes Review of Systems All Other Systems Reviewed And Are Negative: Yes Constitutional: Positive: Other - SEE HPI Skin: Positive: Negative Eyes: Positive: Negative ENT: Positive: Other - SEE HPI Respiratory: Positive: Shortness Of Breath Cardiovascular: Positive: Chest Pain Gastrointestinal: Positive: Negative Motor: Positive: Negative Neurovascular: Positive: Negative Musculoskeletal: Positive: Negative Neurological: Positive: Negative Psychological: Positive: Negative Is Patient Immunocompromised?: No Physical Exam Triage Information Reviewed: Yes Appearance: Well-Nourished, Pain Distress - MILD Vital Signs: Initial Vital Signs Temp 97.4 F 09/17/18 10:04 Pulse 64 09/17/18 10:04 Resp 16 09/17/18 10:04 BP 137/73 09/17/18 10:04 Pulse Ox 100 09/17/18 10:04 Vital Signs Reviewed: Yes Eye Exam: Normal Eyes: Positive: Conjunctiva Clear ENT: Positive: Uvula midline, Other - HAS DENTURES Neck: Positive: Other: - The left lower anterior neck is tender to palpation and he feels mildly swollen in comparison to the right side. No tenderness at the mastoid. Respiratory: Positive: Lungs clear, Normal breath sounds, No respiratory distress Cardiovascular: Positive: RRR Musculoskeletal: Positive: Strength Intact, ROM Intact Neurological Exam: Normal Neurological: Positive: Alert, Muscle Tone Normal Psychological Exam: Normal Psychological: Positive: Age Appropriate Behavior Skin Exam: Normal Neck Pain Course/Dx - Course Course Of Treatment: Due to the location of the pain in the neck and having chest pain yesterday and the recent dental work and weight loss I recommended further evaluation emergency Department. Here we do not have CT with IV contrast of the neck and chest which I feel would be appropriate in this patient. Also evaluation of the chest pain is most appropriate emergency department. I discussed the case with the [place] emergency as the provider to Dr. Azar. - Differential Dx/Diagnosis Provider Diagnosis: Neck pain on left side, Chest pain Discharge - Sign-Out/Discharge Documenting (check all that apply): Patient Departure All imaging exams completed and their final reports reviewed: No Studies - Discharge Plan Condition: Stable Disposition: HOME Referrals: Sanjay Paulino MD [Primary Care Provider] - Additional Instructions: GO DIRECTLY TO THE EMERGENCY DEPARTMENT FOR FURTHER EVALUATION OF YOUR NECK PAIN AND CHEST PAIN. - Billing Disposition and Condition Condition: STABLE Disposition: Home
== END 2018-09-17 11:15 | disposition home or self-care (01) ==
LOC: UCCORT 09:46
DX: M54.2 Cervicalgia (principal); R07.9 Chest pain, unspecified; F17.290 Nicotine dependence, other tobacco product, uncomplicated; K08.109 Complete loss of teeth, unspecified cause, unspecified class
CPT/HCPCS: 99212; G0463